=== PATIENT | female | born 1955 | race Caucasian/White ===

== ENCOUNTER 2017-09-12 16:42 | Emergency (ER) | payer BC ==
[~2017-09-12] VITALS: Ht 162.6 cm; Wt 80.0 kg
[2017-09-12] MEDS ORDERED: orphenadrine citrate 60mg/2ml inj. IM ONE (17:25)
[2017-09-12] MEDS ORDERED: ketorolac trometh inj. 60 MG/2 ML VIAL IM ONE (17:25)
[2017-09-12 17:40] VITALS: BP 150/54
[2017-09-12] MEDS ORDERED: CYCL-1 PO (17:49)
[2017-09-12] MEDS ORDERED: IBUP-1984 PO (17:50)
== END 2017-09-12 17:45 | disposition home or self-care (01) ==
LOC: ER 16:43
DX: M43.6 Torticollis (principal)
CPT/HCPCS: 96372; 99284; J1885; J2360